=== PATIENT | female | born 1965 ===

== ENCOUNTER 2023-05-21 12:03 | Day surgery (SDC) | payer OTHER | END 2023-05-21 22:55 | disposition home or self-care (01) | LOC: CIR.AMB 12:03 | PROVIDERS: ATTEND Student in an Organized Health Care Education/Training Program | DX: N84.0 Polyp of corpus uteri (principal); N93.8 Other specified abnormal uterine and vaginal bleeding; Z20.822 Contact with and (suspected) exposure to COVID-19; N72 Inflammatory disease of cervix uteri ==